=== PATIENT | female | born 1945 | race Caucasian/White ===

== ENCOUNTER 2023-08-10 07:54 | Day surgery (SDC) | payer MEDICARE, MEDICAID ==
[~2023-08-10] VITALS: Ht 166.4 cm; Wt 76.6 kg
[2023-08-10] VITALS (17 sets, daily range): BP systolic 129–163; BP diastolic 68–86; PULSE 52–78; RESP 16–18; TEMP 97.8; O2SAT 95–99
[2023-08-10] MEDS ORDERED: normal saline 1000ml 1,000 ML IV PRN (08:15)
[2023-08-10] MEDS ORDERED: albumin 25% 100mL bottle x 1 IV PRN (08:15)
[2023-08-10] MEDS ORDERED: CYCL-1 PO (08:37)
[2023-08-10] MEDS ORDERED: LISI40TA13 PO (08:37)
[2023-08-10] MEDS ORDERED: HYDR12.55 PO (08:37)
[2023-08-10] MEDS ORDERED: AMLO10TA13 PO (08:37)
[2023-08-10] MEDS ORDERED: ALLO300T8 PO (08:37)
[2023-08-10] MEDS ORDERED: ATOR40TA PO (08:37)
[2023-08-10 09:20] LABS: INR 0.9 INR
[2023-08-10 10:06] LABS: HEMOGLOBIN 14.4 g/dl (12.0-16.0); RED CELL DISTRIBUTION WIDTH 15.1 % (11.5-14.5)
[2023-08-10 10:07] LABS: HEMATOCRIT 42.7 % (35.0-45.0); MEAN CORPUSCULAR HEMOGLOBIN 29.3 PG (27.0-31.0); MEAN CORPUSCULAR HGB CONC 33.7 g/dL (33.0-36.5); MEAN CORPUSCULAR VOLUME 86.9 FL (78-98); MEAN PLATELET VOLUME 9.4 FL (7.4-10.4); RED BLOOD COUNT 4.91 X10'6 (4.20-5.60)
[2023-08-10 10:25] LABS: PLATELET COUNT 261 X10'3 (140-440); WHITE BLOOD COUNT 6.3 X10'3 (4.5-11.0)
[2023-08-10 10:29] LABS: PLATELET ESTIMATE NORMAL; TOTAL CELLS COUNTED 100
[2023-08-10] MEDS ORDERED: midazolam 1 mg/ML 2ml injection ONE (10:48)
[2023-08-10] MEDS ORDERED: fentaNYL/PF 50MCG/1 ML 2ML syringe ONE (10:48)
== END 2023-08-10 15:00 | disposition home or self-care (01) ==
LOC: SSTAY O 07:54
PROVIDERS: ATTEND Radiology Vascular & Interventional Radiology
DX: R91.8 Other nonspecific abnormal finding of lung field (principal); J44.9 Chronic obstructive pulmonary disease, unspecified; G89.29 Other chronic pain; E78.5 Hyperlipidemia, unspecified; I10 Essential (primary) hypertension; E55.9 Vitamin D deficiency, unspecified; M10.9 Gout, unspecified; M54.31 Sciatica, right side; M54.42 Lumbago with sciatica, left side; Z88.5 Allergy status to narcotic agent; Z91.041 Radiographic dye allergy status; F17.210 Nicotine dependence, cigarettes, uncomplicated; Z98.890 Other specified postprocedural states; Z90.49 Acquired absence of other specified parts of digestive tract; Z79.899 Other long term (current) drug therapy; Z72.89 Other problems related to lifestyle
CPT/HCPCS: 32408; 36415; 71045; 82948; 85025; 85610; J3010; J7030; 85007; J2250